=== PATIENT | female | born 1990 | race Caucasian/White ===

== ENCOUNTER 2016-12-23 14:03 | Emergency (ER) | payer SELFPAY ==
[~2016-12-23] VITALS: Ht 157.5 cm; Wt 86.2 kg
[~2016-12-23 14:03] MED LIST: NORE1TAB PO; birth control
[2016-12-23] MEDS ORDERED: IV NORMAL SALINE 1,000ML 1,000 ML IV SCH (14:22)
--- NOTE | 2016-12-23 14:37 | PHYS DOC ---
General Chief Complaint: COUGH Stated Complaint: SOA,COUGH/CONGESTION Time Seen by MD: 14:09 Source: patient Exam Limitations: no limitations Problems: History of Present Illness Initial Comments Pt is 26/F to ED c/o cough, head congestion which began last night. Today pt with some dyspnea, came to ED for evaluation. Does not have PCP, used to take albuterol PRN. Used her father's albuterol MDI at home with some relief. Cough is dry, worse at night. 98.5, 105, 145/79, 99% RA Timing/Duration: 24 hours Severity: moderate Modifying Factors: worse with movement, improves with rest Associated Symptoms: cough, shortness of breath, other Allergies: Coded Allergies: morphine (Verified Allergy, Severe, Hives, 05/02/14) Past Medical History Medical History: asthma Surgical History: noncontributory Social History Smoker: non-smoker Alcohol: occasionally Drugs: none Review of Systems Constitutional: denies chills, denies fever, malaise EENTM: denies ear discharge, nose congestiondenies throat pain, denies mouth pain Respiratory: cough shortness of breath wheezing Cardiovascular: denies chest pain, denies palpitations, denies syncope Gastrointestinal: denies abdominal pain, denies nausea, denies vomiting Genitourinary: denies dysuria, denies frequency, denies hematuria Musculoskeletal: denies back pain, denies joint swelling, denies neck pain Psychiatric/Neurological: denies headache, denies numbness, denies paresthesia , denies weakness Hematologic/Lymphatic: denies blood clots, denies easy bleeding, denies easy bruising Physical Exam General Appearance: WD/WN, no apparent distress Eyes: bilateral eye EOMI, bilateral eye PERRL, bilateral eye normal inspection Ear, Nose, Throat: hearing grossly normal, normal ENT inspection Respiratory: chest non-tender, no respiratory distress, decreased breath sounds , wheezing Cardiovascular: normal peripheral pulses, tachycardia Gastrointestinal: non tender, soft Back: no CVA tenderness, no vertebral tenderness Extremities: non-tender, normal inspection 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 PHYSICIAN: LISA SAHU DO REASON: SHORTNESS OF BREATH PROCEDURE: CHEST PA & LATERAL Chest, 2 views, 12/23/2016: History: Shortness of breath and chest pain The heart size and pulmonary vascularity are normal. No pulmonary infiltrates are seen. There is no evidence of pleural fluid. There is a mild thoracic scoliosis. IMPRESSION: No acute cardiopulmonary abnormality is detected. DICTATED AND SIGNED BY: HARMEET CARDOSO MD DATE: 12/24/16817 CC: PCP,NO; LISA SAHU DO ~ WBC 16.9, d-dimer 0.25, UA with SE contamination await C/S, drug screen and influenza negative. Good response to neb tx, improved air exchange pt feels better. Departure Time of Disposition: 17:42 Disposition: 01 HOME, SELF-CARE Diagnosis: asthma exacerbation, bronchitis Condition: GOOD Patient Instructions: Asthma, Adult, [id number] Additional Instructions: Rest, no strenuous activity. Aggressive hydration with gatorade, water. OTC tylenol as needed. Rx: nebulizer machine, albuterol MDI/nebs, prednisone, zithromax You will need to follow up with a PCP for recheck and ongoing health maintenance. If needed, ED staff can provide you a list of local doctors accepting new patients. Call tomorrow morning to schedule next available appointment. Return to ED with new or changing symptoms. LISA SAHU DO Dec 23, 2016 14:37
[2016-12-23] MEDS ORDERED: methylPREDNISolone SOD SUCC PF 125 MG/2 ML VIAL. IV ONE (15:00)
[2016-12-23] MEDS ORDERED: IPRATRPIUM/ALBUTEROL 0.5/2.5MG 3 ML NEBU. NEB ONE (15:00)
[2016-12-23 15:37] LABS: BASO % 0 % (0-3); EOS # 0.7 x10^3/uL (0.0-0.7); EOS % 4 % (0-3); HEMATOCRIT 41.5 % (36.0-47.0); HEMOGLOBIN 13.9 g/dL (12.0-15.5); LYMPH # 1.3 x10^3/uL (1.0-4.8); LYMPH % 8 % (24-48); MEAN CORPUSCULAR HEMOGLOBIN 29 pg (25-35); MEAN CORPUSCULAR HGB CONC 34 g/dL (31-37); MEAN CORPUSCULAR VOLUME 88 fL (79-100); MONO # 0.8 x10^3/uL (0.0-1.1); MONO % 5 % (0-9); NEUT # 14.1 x10^3uL (1.8-7.7); NEUT % 84 % (31-73); PLATELET COUNT 285 x10^3/uL (140-400); RED BLOOD COUNT 4.71 x10^6/uL (3.50-5.40); RED CELL DISTRIBUTION WIDTH 12.8 % (11.5-14.5); WHITE BLOOD COUNT 16.9 x10^3/uL (4.0-11.0)
[2016-12-23 15:46] LABS: INFLUENZA A PATIENT NEGATIVE (NEGATIVE); INFLUENZA B PATIENT NEGATIVE (NEGATIVE)
[2016-12-23 15:57] LABS: BILIRUBIN,URINE NEG (NEG); CLARITY,URINE TURBID; COLOR,URINE YELLOW; GLUCOSE,URINE NEG (NEG); NITRITE,URINE NEG (NEG); UROBILINOGEN,URINE 0.2 mg/dL (0.2 mg/dL)
[2016-12-23 15:58] LABS: BACTERIA,URINE MOD /HPF (0-FEW); SQUAMOUS EPITHELIAL CELL,UR MOD /LPF
[2016-12-23 16:02] LABS: BARBITURATES NEG (NEG); BENZODIAZEPINES NEG (NEG); CANNABINOIDS NEG (NEG); COCAINE NEG (NEG); METHADONE NEG (NEG); OPIATES NEG (NEG); PHENCYCLIDINE NEG (NEG)
[2016-12-23 16:03] LABS: AMPHETAMINE/METHAMPHETAMINE NEG (NEG)
--- NOTE | 2016-12-23 16:18 | EKG ---
[address] [address] Test Date: 2016-12-23 Test Time: 14:35:55 Pat Name: MOHAN RODRIGUEZ Department: Room: Gender: F Chef Head: CHUY : 1990 Requested By: LISA SAHU Order Number: [id number] Reading MD: Measurements Intervals [place] Rate: 113 P: 3 ND: 150 QRS: 66 QRSD: 84 T: 24 QT: 330 QTc: 458 Interpretive Statements SINUS TACHYCARDIA QRS(T) CONTOUR ABNORMALITY CONSIDER ANTEROSEPTAL MYOCARDIAL DAMAGE POSSIBLY ABNORMAL ECG RI6.01 Unconfirmed report No previous ECG available for comparison
[2016-12-23 16:38] LABS: POTASSIUM 3.8 mmol/L (3.5-5.1)
[2016-12-23 16:41] LABS: ALBUMIN/GLOBULIN RATIO 1.1 (1.0-1.7); CALCIUM 8.8 mg/dL (8.5-10.1); CREATININE 0.6 mg/dL (0.6-1.0); GFR 122.8; TOTAL PROTEIN 7.5 g/dL (6.4-8.2)
[2016-12-23 17:42] VITALS: BP 123/73
[2016-12-23 18:59] LABS: % BANDS 5 % (0-9); % EOS 6 % (0-5); % LYMPHS 11 % (24-48); % MONOS 2 % (0-10); % SEGS 76 % (35-66); PLT ESTIMATE ADEQUATE (ADEQUATE)
[2016-12-23 19:00] LABS: POLYCHROMASIA SLIGHT; TOXIC GRANULATION SLIGHT; TOXIC VACUOLATION SLIGHT
--- NOTE | 2016-12-24 08:22 | RAD ---
Chest, 2 views, 12/23/2016: History: Shortness of breath and chest pain The heart size and pulmonary vascularity are normal. No pulmonary infiltrates are seen. There is no evidence of pleural fluid. There is a mild thoracic scoliosis. IMPRESSION: No acute cardiopulmonary abnormality is detected.
== END 2016-12-23 18:08 | disposition home or self-care (01) ==
LOC: ER 14:03
DX: J45.901 Unspecified asthma with (acute) exacerbation (principal); J40 Bronchitis, not specified as acute or chronic; Z88.5 Allergy status to narcotic agent
CPT/HCPCS: 36415; 71020; 80053; 80305; 80320; 81001; 82550; 83605; 83880; 84484; 84703; 85007; 85027; 85379; 87040; 87086; 87804; 93005; 94640; 96361; 96374; 99285; J2930; 81025; G0480; G0481; J7030